=== PATIENT | female | born 1960 | race Caucasian/White ===

== ENCOUNTER → 2017-05-18 | Outpatient (CLI) | payer OTHER ==
[2017-05-18 11:49] LABS: Prothrombin Time 10.3 sec (9.0-12.0)
== END | disposition home or self-care (01) ==
LOC: LABWHC1 11:10
PROVIDERS: ATTEND Dentist Oral and Maxillofacial Surgery
DX: D68.9 Coagulation defect, unspecified (principal)
CPT/HCPCS: 36415; 85610

== ENCOUNTER → 2020-12-13 | Outpatient (CLI) | payer OTHER ==
[2020-12-13 09:50] LABS: Prothrombin Time 10.4 sec (9.0-12.0)
== END | disposition home or self-care (01) ==
LOC: LABWHC1 08:53
PROVIDERS: ATTEND Dentist Oral and Maxillofacial Surgery
DX: D68.9 Coagulation defect, unspecified (principal)
CPT/HCPCS: 36415; 85610

== ENCOUNTER → 2021-07-15 | Outpatient (CLI) | payer OTHER ==
[2021-07-15 10:13] LABS: INR 1.1 (<1.2); Prothrombin Time 11.4 sec (9.0-12.0)
== END | disposition home or self-care (01) ==
LOC: LABWHC1 09:32
PROVIDERS: ATTEND Dentist Oral and Maxillofacial Surgery
DX: D48.9 Neoplasm of uncertain behavior, unspecified (principal)
CPT/HCPCS: 36415; 85610

== ENCOUNTER 2021-11-25 12:34 | Emergency (ER) | payer OTHER ==
[2021-11-25] MEDS ORDERED: ACETAMINOPHEN TAB 325 MG TAB PO STA (12:37)
[2021-11-25 12:43] VITALS: RESP 18; TEMP 98.8
[2021-11-25] MEDS ORDERED: SODIUM CHLORIDE 0.9% 500 ML 500 ML IV ONE (12:45)
[2021-11-25] MEDS ORDERED: MORPHINE SULFATE 4 MG/ML SYRINGE IV STA (12:45)
[2021-11-25] MEDS ORDERED: DIPH,PERTUS(ACELL)TETVAC-LF 0.5 ML VIAL IM ONE (12:47)
[2021-11-25 13:14] LABS: Basophils % (A) 0 %; Eosinophils # (A) 0.1 k/uL (0-0.7); Eosinophils % (A) 1 %; HCT 38.4 % (34.0-46.0); HGB 13.1 gm/dL (11.4-16.0); Lymphocytes % (A) 15 %; MCH 31.5 pg (25.0-35.0); MCHC 34.1 g/dL (31.0-37.0); MCV 92.6 fL (80.0-100.0); Mean Platelet Volume 7.2; Monocytes # (A) 0.4 k/uL (0-1.0); Monocytes % (A) 6 %; Neutrophils % (A) 75 %; Platelet Count 262 k/uL (150-450); RBC 4.15 m/uL (3.80-5.40); RDW 13.4 % (11.5-15.5); WBC 6.7 k/uL (3.8-10.6)
[2021-11-25 13:24] LABS: INR 3.6 (<1.2); Partial Thromboplastin Time 26.6 sec (22.0-30.0); Prothrombin Time 36.1 sec (9.0-12.0)
[2021-11-25 13:27] LABS: ALT 19 U/L (4-34); AST 25 U/L (14-36); African American GFR (CKD) >90 (>60 ml/min/1.73 sqM); Albumin 3.8 g/dL (3.5-5.0); Alkaline Phosphatase 65 U/L (38-126); Anion Gap 6 mmol/L; Blood Urea Nitrogen 32 mg/dL (7-17); Calcium 8.3 mg/dL (8.4-10.2); Carbon Dioxide 23 mmol/L (22-30); Chloride 105 mmol/L (98-107); Glucose 135 mg/dL (74-99); Non-African American GFR(CKD) 89 (>60 ml/min/1.73 sqM); Potassium 4.2 mmol/L (3.5-5.1); Sodium 134 mmol/L (137-145); Total Bilirubin 0.8 mg/dL (0.2-1.3); Total Protein 6.3 g/dL (6.3-8.2)
--- NOTE | 2021-11-25 13:52 | CT ---
EXAMINATION TYPE: CT facial bones wo con DATE OF EXAM: 11/25/2021 COMPARISON: None HISTORY: Fall, pain on coumadin CT DLP: 1293.9 mGycm Automated exposure control for dose reduction was used. TECHNIQUE: CT scan of the sinuses is performed without contrast, axial images are obtained, coronal r eformatted images are also reviewed. FINDINGS: The paranasal sinuses including the frontal, ethmoid, sphenoid, and maxillary sinuses bila terally are well-aerated without abnormal opacification. The ostiomeatal complex is patent bilateral ly on the coronal images. Nasal septal deviation noted. Visualized portion of mastoid air cells show no abnormal opacification. The globes are intact bilate rally. IMPRESSION: The sinuses are clear and the ostiomeatal complex is patent bilaterally.
--- NOTE | 2021-11-25 13:59 | CT ---
EXAMINATION TYPE: CT pelvis wo con DATE OF EXAM: 11/25/2021 COMPARISON: None HISTORY: Fall, hip pain CT DLP: 974.3 mGycm Automated exposure control for dose reduction was used. FINDINGS: There is a posterior dislocation of the left femoral head. There is no adjacent bony density along the superior and posterior margin of the femoral head which l ikely is related to a chip fracture. Donor site may be related to the posterior margin of the acetabu lum. IMPRESSION: 1. Posterior left hip dislocation. Adjacent soft tissue edema. Small amount of fluid in the joint spa ce not excluded. 2. There is a 2 tiny bony density seen adjacent to the femoral head likely related to chip fractures. Donor site most likely related to acetum rather than femur correlate clinically.
--- NOTE | 2021-11-25 14:07 | CT ---
EXAMINATION TYPE: CT brain carlosine wo con DATE OF EXAM: 11/25/2021 COMPARISON: MRI dated 09/22/2011 HISTORY: Fall, pain on coumadin CT DLP: 1293.9 mGycm Automated exposure control for dose reduction was used. TECHNIQUE: CT scan of the head and cervical spine are performed without contrast. FINDINGS: Brain: Subtle bilateral superior frontal white matter hypodensities, possibly ischemic. No acute intracrania l hemorrhage or gross acute cortical infarct. No midline shift or herniation. Unremarkable basal cist erns, sella and CP angles. No gross space-occupying lesion, vasogenic edema or mass effect. No gross orbital abnormality. Clear visualized paranasal sinuses and mastoid air cells. No definite acute calvarial bone fracture identif ied. Cervical spine: Good vertebral alignment without significant anterolisthesis or retrolisthesis. No definite vertebral body collapse or acute displaced fracture. Unremarkable atlantoaxial and atlantooccipital articulati ons. No facet dislocation or significant subluxation. No significant central spinal canal stenosis or neuroforaminal stenosis. Tiny right thyroid lobe hypo density, please correlate with elective thyroid ultrasound results. Slightly prominent right lingual tonsil, nonspecific. A small underlying lesion cannot be excluded. Further ENT consultation can be co nsidered. Medialization of the internal carotid arteries seen posterior to the hypopharynx with minim al arterial atherosclerotic calcifications. No paraspinal lesion. IMPRESSION: 1. No acute traumatic bony injury of the cervical spine. 2. No acute intracranial posttraumatic sequela or acute calvarial bone fracture. 3. Incidental findings and recommendations as described above.
--- NOTE | 2021-11-25 14:13 | XR ---
EXAMINATION TYPE: XR femur LT, XR knee limited LT DATE OF EXAM: 11/25/2021 CLINICAL HISTORY: Pain after fall injury. TECHNIQUE: Two views of the left femur and knee are obtained. COMPARISON: CT pelvis earlier today FINDINGS: There is redemonstration of posterior dislocation of the left proximal femur with bony acut e fracture fragmentation of the posterior wall of the left acetabulum. No additional acute fracture i n the left femur. Metallic prosthesis at level of the left knee joint is redemonstrated. Osseous structures are deminer alized. No additional acute fracture at this level is seen. IMPRESSION: There is known posterior left hip dislocation with acute comminuted fractures through th e posterior wall of the left acetabulum. No additional acute fracture in the left femur or knee.
--- NOTE | 2021-11-25 14:14 | XR ---
EXAMINATION TYPE: XR chest 1V DATE OF EXAM: 11/25/2021 COMPARISON: NONE HISTORY: Chest pain after recent fall injury. TECHNIQUE: Single frontal view of the chest is obtained. FINDINGS: There is chronic parenchymal change without suspicious focal air space opacity, pleural ef fusion, or pneumothorax seen. The cardiac silhouette size is mildly enlarged. Overlying bra strap i s present. The osseous structures are demineralized. IMPRESSION: Chronic changes and mild cardiomegaly without acute pulmonary process.
[2021-11-25] MEDS ORDERED: PROPOFOL 10 MG/ML 20 ML VIAL IV ONE (14:15)
[2021-11-25] MEDS ORDERED: KETAMINE 10 MG/ML 20 ML VIAL IV ONE (14:15)
[2021-11-25] MEDS ORDERED: SODIUM CHLORIDE 0.9% 1,000 ML IV STA (14:16)
--- NOTE | 2021-11-25 14:44 | ED ---
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 Patient did not lose consciousness. States her INR is usually within normal limits. Denies any chest pain, shortness of breath. By my concern about his left hip pain. His normal sensation in the left foot. Fall occurred shortly before arrival. S tates she tripped over the sidewalk. She does take Coumadin. His no other acute complaints at this time. Presents over concern for injuries following mechanical fall. Patient fell from standing height. - Related Data Allergies Allergy/AdvReac Type Severity Reaction Status Date / Time No Known Allergies Allergy Verified 11/25/21 12:46 Review of Systems ROS Statement: Those systems with pertinent positive or pertinent negative responses have been documented in the HPI. Review of Systems: CONST: Denies fever EYES: Denies blurry vision ENT: Denies nasal congestion C/V: Denies Chest pain RESP: Denies shortness of breath GI: Denies abdominal pain : Denies dysuria SKIN: Endorses abrasions over the face MSK: Endorses left ear pain NEURO: Denies headache ROS Other: All systems not noted in ROS Statement are negative. Past Medical History Past Medical History: Hypertension Additional Past Medical History / Comment(s): clotting disorder History of Any Multi-Drug Resistant Organisms: None Reported Past Surgical History: Unable to Obtain Past Psychological History: No Psychological Hx Reported Smoking Status: Never smoker Past Alcohol Use History: Occasional Past Drug Use History: None Reported General Exam - General Exam Comments Initial Comments: General: Appears in moderate distress secondary to primarily left hip pain. HEAD: Has facial signs of trauma, including abrasions over the chin, nose. No facial tenderness to palpation otherwise. No step-offs or deformities. Negative raccoon eyes. Negative Yanes sign. EYES: PERRLA, EOMI, conjunctiva normal, no discharge. Pupils are 3 mm and equal bilaterally. ENT: Hearing grossly intact, normal oropharynx. RESPIRATORY: Clear breath sounds bilaterally. No wheezes, rales, or rhonchi. C/V: Regular rate and rhythm. S1 and S2 auscultated, no edema, peripheral pulses 2+ and intact throughout ABD: Abd is soft, nontender, nondistended EXT: Reduced range of motion of the left hip. Chest palpation over the lateral aspect of left hip. Left leg is shortened and internally rotated. No cervical, thoracic, lumbar spine tenderness to palpation. No femur tenderness to palpation. SKIN: Multiple abrasions over the face. NEURO: Alert and oriented 4. No focal deficits. NIH is 0. GCS is 15. No neurological deficits at this time Limitations: no limitations Course Vital Signs 11/25/21 11/25/21 11/25/21 12:36 14:10 14:30 Temperature 98.8 F Pulse Rate 73 88 78 Respiratory 18 18 Rate Blood Pressure 143/71 133/64 176/87 O2 Sat by Pulse 97 98 Oximetry 11/25/21 11/25/21 11/25/21 14:45 14:50 14:55 Temperature Pulse Rate 84 90 89 Respiratory 18 18 18 Rate Blood Pressure 188/98 212/137 203/92 O2 Sat by Pulse 100 98 97 Oximetry 11/25/21 11/25/21 11/25/21 15:00 15:15 15:30 Temperature Pulse Rate 90 80 88 Respiratory 18 18 18 Rate Blood Pressure 138/74 187/79 O2 Sat by Pulse 98 98 Oximetry 11/25/21 11/25/21 15:45 16:00 Temperature Pulse Rate 80 82 Respiratory 18 18 Rate Blood Pressure O2 Sat by Pulse 98 98 Oximetry Procedures - Orthopedic Fracture Reduction Fracture #1 Consent Obtained: verbal consent, written consent Side: left Fracture Reduction Location: femur Technique: direct manipulation, traction/counter-traction Splint Applied: No Patient Tolerated Procedure: well Additional Comments: Unsuccessful attempt to reduce Left hip fracture. - Procedural Sedation Procedural Sedation Start Time: 14:45 Procedural Sedation Stop Time: 15:00 Indications: fracture/dislocation reduction ASA Class: I Mallampati Airway Score: 2 Preparation: cardiac exercise physiologist applied, pulse oximeter, capnometry used Ketamine: IV Ketamine Dose: 40 IV Propofol Dose (mgs): 80 Complications: none Patient Tolerated Procedure: well Additional Comments: unsuccessful left hip reduction. Medical Decision Making - Medical Decision Making Based on patient's presentation and physical exam, and concern for acute traumatic injury following mechanical fall.We will obtain CT imaging of the patient's brain, neck, pelvis. We also obtain plain film x-rays of the left knee, femur. She was in agreement with this plan. Basic trauma labs were obtained including INR. She'll be given IV fluids as well as analgesia and a tetanus booster. Laboratory studies are remarkable for INR that is supratherapeutic at 3.6. Remainder the labs are unremarkable. CT brain showed no acute intracranial bleeding. CT C-spine show no acute injury. Chest x-ray revealed no acute injury. Left leg x-rays and CT imaging revealed a comminuted, chip posterior acetabular fracture with a posterior hip dislocation. Face CT revealed no acute fracture or injury. On re-evaluations, I did update the patient regarding the fracture and dislocation. I spoke with our orthopedic surgeon on-call, Dr. Adkins who recommended transfer to the trauma center. I was in agreement this plan. We'll attempt to reduce the fracture dislocation prior to transfer. I did speak with the orthopedic trauma surgeon on-call at [facility], Dr. Haro who accepted the patient. ER accepting physician is Dr. Cesar. Initial attempt was made to reduce the patient's hip fracture dislocation, and this was unsuccessful.I did contact orthopedic surgeon, Dr. Adkins who reviewed the images, and spoke with the patient. The decision was made to transfer the patient without reduction, as there is a high likelihood it will re-dislocate spontaneously. I did discuss this with Dr. Haro who was in agreement with the plan. There was a delay in transfer, as I was dealing with a another critical trauma patient who required transfer prior to this patient. There is also a delay, as the reduction attempt was unsuccessful. Patient was transferred in stable condition to [facility]. Accepting physician is Dr. Cesar. I discussed the plan with the patient and family, and they were in agreement with the plan. She'll be redosed morphine. Coumadin will be held at this time. - Lab Data Result diagrams: 11/25/21 12:58 11/25/21 12:58 Lab Results 11/25/21 11/25/21 11/25/21 Range/Units 12:58 12:58 12:58 WBC 6.7 (3.8-10.6) k/uL RBC 4.15 (3.80-5.40) m/uL Hgb 13.1 (11.4-16.0) gm/dL Hct 38.4 (34.0-46.0) % MCV 92.6 (80.0-100.0) fL MCH 31.5 (25.0-35.0) pg MCHC 34.1 (31.0-37.0) g/dL RDW 13.4 (11.5-15.5) % Plt Count 262 (150-450) k/uL MPV 7.2 Neutrophils % 75 % Lymphocytes % 15 % Monocytes % 6 % Eosinophils % 1 % Basophils % 0 % Neutrophils # 5.0 (1.3-7.7) k/uL Lymphocytes # 1.0 (1.0-4.8) k/uL Monocytes # 0.4 (0-1.0) k/uL Eosinophils # 0.1 (0-0.7) k/uL Basophils # 0.0 (0-0.2) k/uL PT 36.1 H (9.0-12.0) sec INR 3.6 H (<1.2) APTT 26.6 (22.0-30.0) sec Sodium 134 L (137-145) mmol/L Potassium 4.2 (3.5-5.1) mmol/L Chloride 105 (98-107) mmol/L Carbon Dioxide 23 (22-30) mmol/L Anion Gap 6 mmol/L BUN 32 H (7-17) mg/dL Creatinine 0.73 (0.52-1.04) mg/dL Est GFR (CKD-EPI)AfAm >90 (>60 ml/min/1.73 sqM) Est GFR (CKD-EPI)NonAf 89 (>60 ml/min/1.73 sqM) Glucose 135 H (74-99) mg/dL Calcium 8.3 L (8.4-10.2) mg/dL Total Bilirubin 0.8 (0.2-1.3) mg/dL AST 25 (14-36) U/L ALT 19 (4-34) U/L Alkaline Phosphatase 65 (38-126) U/L Total Protein 6.3 (6.3-8.2) g/dL Albumin 3.8 (3.5-5.0) g/dL Blood Type Blood Type Confirm Blood Type Recheck Bld Type Recheck Status Antibody Screen Spec Expiration Date 11/25/21 11/25/21 Range/Units 14:01 14:04 WBC (3.8-10.6) k/uL RBC (3.80-5.40) m/uL Hgb (11.4-16.0) gm/dL Hct (34.0-46.0) % MCV (80.0-100.0) fL MCH (25.0-35.0) pg MCHC (31.0-37.0) g/dL RDW (11.5-15.5) % Plt Count (150-450) k/uL MPV Neutrophils % % Lymphocytes % % Monocytes % % Eosinophils % % Basophils % % Neutrophils # (1.3-7.7) k/uL Lymphocytes # (1.0-4.8) k/uL Monocytes # (0-1.0) k/uL Eosinophils # (0-0.7) k/uL Basophils # (0-0.2) k/uL PT (9.0-12.0) sec INR (<1.2) APTT (22.0-30.0) sec Sodium (137-145) mmol/L Potassium (3.5-5.1) mmol/L Chloride (98-107) mmol/L Carbon Dioxide (22-30) mmol/L Anion Gap mmol/L BUN (7-17) mg/dL Creatinine (0.52-1.04) mg/dL Est GFR (CKD-EPI)AfAm (>60 ml/min/1.73 sqM) Est GFR (CKD-EPI)NonAf (>60 ml/min/1.73 sqM) Glucose (74-99) mg/dL Calcium (8.4-10.2) mg/dL Total Bilirubin (0.2-1.3) mg/dL AST (14-36) U/L ALT (4-34) U/L Alkaline Phosphatase (38-126) U/L Total Protein (6.3-8.2) g/dL Albumin (3.5-5.0) g/dL Blood Type A Positive Blood Type Confirm A Positive Blood Type Recheck No Previous Record Bld Type Recheck Status CABO Indicated Antibody Screen NEGATIVE Spec Expiration Date 11/28/2021 - 2300 Critical Care Time Critical Care Time: Yes Total Critical Care Time: 35 Critical Care Time: Upon my evaluation, this patient had a high probability of imminent or life- threatening deterioration due to posterior hip dislocation, left acetabular fracture, fall, which required my direct attention, intervention, and personal management. I have personally provided 35 minutes of critical care time exclusive of time spent on separately billable procedures. Time includes review of laboratory data, radiology results, discussion with consultants, and monitoring for potential decompensation. Interventions were performed as documented in my note. Disposition Clinical Impression: Fall, Left acetabular fracture, Posterior dislocation of left hip Disposition: OTHER INSTITUTION NOT DEFINED Condition: Serious Is patient prescribed a controlled substance at d/c from ED?: No Referrals: Michaelle Delcid MD [Primary Care Provider] - 1-2 days - Out of Hospital Transfer - Req. Specs Out of Hospital Transfer - Requested Specifics: Other Emergency Center (Transferred for escalation of care due to acetabular/pelvis fracture.)
[2021-11-25] MEDS ORDERED: MORPHINE SULFATE 4 MG/ML SYRINGE IVP STA ×2 (16:24→17:18)
[2021-11-25 18:00] VITALS: BP 130/85; PULSE 84
--- NOTE | 2021-11-26 09:05 | PN ---
PROGRESS NOTE EMERGENCY ROOM NOTE: DATE OF ENCOUNTER: 11/25/2021 This is a 61-year-old female who sustained an injury earlier today from a ground level fall onto her left side. She was transported to the emergency room. X-rays and CT scan were obtained which show a posterior dislocation of her left hip with a fracture of the posterior wall. The case was discussed with the emergency room physician, who attempted a closed reduction of the hip but was unable to do so despite sedation. I then saw and evaluated the patient in the emergency room alongside her family and reviewed her current situation. I explained to her that she has a posterior dislocation of her hip, and her options include attempt to re-reduce the hip. I discussed this option at length, but there is a strong possibility that either the hip is incarcerated and would need an open reduction or possibly the hip is unstable and unable to be maintained reduced without traction. Due to these factors, I have recommended transfer to a trauma care facility where there are orthopedic trauma physicians able to surgically address her problem. I also discussed that the more time her hip is dislocated, the more chance she has of having avascular necrosis of her femoral head. But given the fact that we are unable to definitively treat her injury at our hospital, I have recommended urgent transfer. She and her family are agreeable to this and I have answered all of their questions. The transfer process is currently in place and she will be transferred to the trauma facility soon. Currently she is comfortable in the bed. Her lower extremity is neurovascularly intact and she is holding her hip in a comfortable position. The patient will be transferred to the trauma care facility for definitive care. KATHERINE / BRIT: [id number] /
== END 2021-11-25 18:00 | disposition other institution (70) ==
LOC: EC 12:34
DX: W01.0XXA Fall on same level from slipping, tripping and stumbling without subsequent striking against object, initial encounter (principal); I10 Essential (primary) hypertension
CPT/HCPCS: 36415; 86900; 86901; 80053; 85025; 85610; 85730; 86850; 73552; 73560; 71045; 72192; 72125; 70486; 70450; 90715; 99284; 96374; 96375; 96376; 96361; J2270; J2704

== ENCOUNTER → 2022-03-12 | Outpatient (CLI) | payer OTHER ==
[2022-03-12 12:04] LABS: INR 2.1 (<1.2); Prothrombin Time 21.1 sec (9.0-12.0)
== END | disposition home or self-care (01) ==
LOC: LABWHC1 11:03
PROVIDERS: ATTEND Dentist Oral and Maxillofacial Surgery
DX: D68.32 Hemorrhagic disorder due to extrinsic circulating anticoagulants (principal)
CPT/HCPCS: 36415; 85610

== ENCOUNTER → 2023-08-03 | Outpatient (CLI) | payer OTHER ==
--- NOTE | 2023-08-03 10:48 | CT ---
EXAMINATION TYPE: CT abdomen wo con DATE OF EXAM: 08/03/2023 COMPARISON: 11/25/2021 CT pelvis HISTORY: ventral hernia CT DLP: 1055.20 mGycm Examination of the solid and hollow viscera is limited given the lack of contrast. Unenhanced CT of t he abdomen was performed from the lung bases through the pelvic inlet. FINDINGS: LUNG BASES: No evidence for nodule. No evidence for infiltrate. LIVER/GB: The gallbladder is surgically absent. No space-occupying hepatic lesion. PANCREAS: No pancreatic mass identified. No inflammatory process seen. SPLEEN: No evidence for splenomegaly. No intrasplenic lesions seen. ADRENALS: No adrenal nodules identified. No evidence for thickening. KIDNEYS: No evidence for renal mass. No nephrolithiasis. No hydronephrosis. BOWEL: Appendix has a normal appearance. Postoperative changes about the stomach and small bowel with surgical anastomosis noted. No evidence of bowel obstruction. No inflammatory process. Lymph nodes: No evidence for adenopathy greater than 1 cm. Abdominal aorta: Atheromatous changes seen. No evidence for aneurysm. Other: Midline and slightly to the right fat containing ventral hernia which measures 13.0 x 10.0 x 5 .6 cm. IMPRESSION: FAT-CONTAINING VENTRAL HERNIA NOTED.
== END | disposition home or self-care (01) ==
LOC: RADCTMAIN 09:44
PROVIDERS: ATTEND Surgery
DX: K43.9 Ventral hernia without obstruction or gangrene (principal)
CPT/HCPCS: 74150

== ENCOUNTER 2024-06-14 12:24 | Emergency (ER) | payer OTHER ==
--- NOTE | 2024-06-14 13:33 | XR ---
EXAMINATION TYPE: XR pelvis AP view DATE OF EXAM: 06/14/2024 CLINICAL HISTORY: pain TECHNIQUE: AP and frogleg views of the left hip are obtained. COMPARISON: None. FINDINGS: There is no acute fracture/dislocation evident. Total left hip arthroplasty is noted to be in place. The overlying soft tissue appears unremarkable. IMPRESSION: 1. There is no acute fracture or dislocation.ICD 10 NO FRACTURE, INITIAL EVALUATION [facility], , 06/14/2024 1:31 PM
--- NOTE | 2024-06-14 13:34 | XR ---
EXAMINATION TYPE: XR knee complete RT DATE OF EXAM: 06/14/2024 CLINICAL HISTORY: pain TECHNIQUE: Three views of the right knee are obtained. COMPARISON: None. FINDINGS: There is no acute fracture/dislocation. Severe narrowing medial tibiofemoral joint space. Moderate narrowing lateral tibiofemoral joint space and patellofemoral joint space. Associated bony s pur formation. The overlying soft tissue appears unremarkable. IMPRESSION: There is no acute fracture or dislocation.ICD 10 NO FRACTURE, INITIAL EVALUATION [facility], , 06/14/2024 1:32 PM
--- NOTE | 2024-06-14 13:35 | XR ---
EXAMINATION TYPE: XR lumbosacral spine min 4V DATE OF EXAM: 06/14/2024 CLINICAL HISTORY: pain COMPARISON: NONE TECHNIQUE: Frontal, lateral, and oblique images of the lumbar spine are obtained. FINDINGS: There are 5 lumbar type vertebral bodies identified. The lumbar spine shows satisfactory alignment without evidence of acute fracture or dislocation. Vertebral body heights are within normal limits. Moderate degenerative narrowing L5-S1 as well as at L1-2 and L2-3. Grade 1 anterolisthesis L 4 and L5 measuring 4 mm. Severe facet joint arthropathy. The overlying soft tissue appears unremark able. IMPRESSION: No acute fracture or dislocation is seen in the lumbar spine.ICD 10 NO FRACTURE, INITIAL EVALUATION [facility], , 06/14/2024 1:33 PM
--- NOTE | 2024-06-14 13:41 | ED ---
General Adult HPI - General Chief complaint: Fall Stated complaint: Fall on thinners-Back/R leg pain Time Seen by Provider: 06/14/24 12:47 Source: patient, RN notes reviewed, old records reviewed Mode of arrival: ambulatory Limitations: no limitations - History of Present Illness Initial comments: 63-year-old female presents status post fall which occurred 10 days ago. Patient was on a cruise, fell landing on her right knee followed by her left knee. Patient developed pain in the right knee as well as pain in the right buttock and low back. Patient had previous acetabular fracture on the left. Patient has been ambulatory since the fall. She is on Coumadin with history of DVT. She states she withheld this medication for several days after the fall. She did not seek medical attention until today. - Related Data Allergies Allergy/AdvReac Type Severity Reaction Status Date / Time No Known Allergies Allergy Verified 06/14/24 12:35 Review of Systems ROS Statement: Those systems with pertinent positive or pertinent negative responses have been documented in the HPI. ROS Other: All systems not noted in ROS Statement are negative. Past Medical History Past Medical History: Hypertension Additional Past Medical History / Comment(s): clotting disorder History of Any Multi-Drug Resistant Organisms: None Reported Past Surgical History: Section, Cholecystectomy Additional Past Surgical History / Comment(s): pelvic repair, left total hip replacement. gatric bypass Past Psychological History: Bipolar, Depression Smoking Status: Never smoker Past Alcohol Use History: Occasional Past Drug Use History: None Reported General Exam Limitations: no limitations General appearance: alert, in no apparent distress Head exam: Present: atraumatic Eye exam: Present: normal appearance, PERRL ENT exam: Present: normal exam Neck exam: Present: normal inspection. Absent: tenderness, meningismus Respiratory exam: Present: normal lung sounds bilaterally. Absent: respiratory distress, wheezes Cardiovascular Exam: Present: regular rate, normal rhythm GI/Abdominal exam: Present: soft. Absent: distended, tenderness, guarding Extremities exam: Present: other (Hematoma anterior knee right side and ecchymosis to the left lower extremity.) Back exam: Present: other (Artemio in the sacral lumbar region on the left) Neurological exam: Present: alert, oriented X3 Course Vital Signs 06/14/24 06/14/24 12:38 14:03 Temperature 98 F 98.1 F Pulse Rate 72 75 Respiratory 18 18 Rate Blood Pressure 135/69 136/84 O2 Sat by Pulse 100 100 Oximetry Medical Decision Making - Medical Decision Making Was pt. sent in by a medical professional or institution (ERICA Young, INFORMATION TECHNOLOGY ASSISTANT, urgent care, hospital, or retirement...) When possible be specific @ -No Did you speak to anyone other than the patient for history (EMS, parent, family, police, friend...)? What history was obtained from this source @ -No Did you review nursing and triage notes (agree or disagree)? Why? @ -I reviewed and agree with nursing and triage notes Were old charts reviewed (outside hosp., previous admission, EMS record, old EKG, old radiological studies, urgent care reports/EKG's, retirement records)? Report findings @ -No old charts were reviewed Differential Musculoskeletal Muscular strain, contusion, ligament sprain, fracture, arthritis, septic arthritis, bursitis, cellulitis, muscle spasm, nerve compression, DVT, arterial occlusion, herpes zoster, electrolyte abnormality, tumor.... This is not meant to be in all inclusive list EKG interpreted by me (3pts min.). @ -As above X-rays interpreted by me (1pt min.). @X-rays of the lumbar spine, pelvis, right knee are negative for displaced fracture. CT interpreted by me (1pt min.). @ -[CT brain negative for intracranial hemorrhage or mass effect U/S interpreted by me (1pt. min.). @ -None done What testing was considered but not performed or refused? (CT, X-rays, U/S, labs)? Why? @ -None What meds were considered but not given or refused? Why? @ -None Did you discuss the management of the patient with other professionals (professionals i.e. ERICA Young, INFORMATION TECHNOLOGY ASSISTANT, lab, RT, psych nurse, social media developer, configuration management advisor, teacher, staff electronic warfare officer, case resource manager)? Give summary @ -No Was smoking cessation discussed for >3mins.? @ -No Was critical care preformed (if so, how long)? @ -No Were there social determinants of health that impacted care today? How? (Homelessness, low income, unemployed, alcoholism, drug addiction, transportation, low edu. Level, literacy, decrease access to med. care, penitentiary, rehab)? @ -No Was there de-escalation of care discussed even if they declined (Discuss DNR or withdrawal of care, Hospice)? DNR status @ -No What co-morbidities impacted this encounter? (DM, HTN, Smoking, COPD, CAD, Ca ncer, CVA, ARF, Chemo, Hep., AIDS, mental health diagnosis, sleep apnea, morbid obesity)? @ -[History of DVT on Coumadin Was patient admitted / discharged? Hospital course, mention meds given and rou te, prescriptions, significant lab abnormalities, going to OR and other pertinent info. @ -63-year-old presenting status post fall which occurred 10 days ago. Patient is on Coumadin. X-rays of the lumbar spine, pelvis, right knee are negative for displaced fracture, no acute findings. Head CT is negative for intracranial hemorrhage or mass effect. Patient's INR is supratherapeutic greater than 10. No active bleeding however there is a hematoma to the right leg. I did instruct the patient to ice and elevate her knee and discontinue Coumadin awaiting recheck INR in 48 hours. Patient is instructed to present to the emergency department if she cannot have her INR checked by her primary care on Wednesday. Undiagnosed new problem with uncertain prognosis? @ -No Drug Therapy requiring intensive monitoring for toxicity (Heparin, Nitro, Insulin, Cardizem)? @ -No Were any procedures done? @ -No Diagnosis/symptom? @Fall, knee contusion and hematoma, supratherapeutic INR Acute, or Chronic, or Acute on Chronic? @Acute Uncomplicated (without systemic symptoms) or Complicated (systemic symptoms)? @ -Default Side effects of treatment? @ -No Exacerbation, Progression, or Severe Exacerbation? @ -No Poses a threat to life or bodily function? How? (Chest pain, USA, DC, pneumonia, PE, COPD, DKA, ARF, appy, cholecystitis, CVA, Diverticulitis, Homicidal, Suicidal, threat to staff... and all critical care pts) @ -[Low risk at this time - Lab Data Result diagrams: 06/14/24 14:06 Lab Results 06/14/24 06/14/24 Range/Units 14:06 14:06 WBC 3.6 L (3.8-10.6) k/uL RBC 3.38 L (3.80-5.40) m/uL Hgb 10.6 L (11.4-16.0) gm/dL Hct 32.2 L (34.0-46.0) % MCV 95.4 (80.0-100.0) fL MCH 31.2 (25.0-35.0) pg MCHC 32.7 (31.0-37.0) g/dL RDW 14.1 (11.5-15.5) % Plt Count 344 (150-450) k/uL MPV 7.2 Neutrophils % 68 % Lymphocytes % 21 % Monocytes % 6 % Eosinophils % 4 % Basophils % 1 % Neutrophils # 2.4 (1.3-7.7) k/uL Lymphocytes # 0.7 L (1.0-4.8) k/uL Monocytes # 0.2 (0-1.0) k/uL Eosinophils # 0.1 (0-0.7) k/uL Basophils # 0.0 (0-0.2) k/uL Hypochromasia Slight PT 117.2 H (10.0-12.5) sec INR >10.0 H* (<1.2) Disposition Clinical Impression: Fall, Contusion of knee, right, Supratherapeutic INR Disposition: HOME SELF-CARE Condition: Fair Instructions (If sedation given, give patient instructions): Knee Pain (ED), Fall Prevention (ED) Additional Instructions: Have your INR checked on Wednesday. Please do not take your Coumadin until your INR level is checked. Please apply ice to the right knee and elevate. Is patient prescribed a controlled substance at d/c from ED?: No Referrals: Michaelle Delcid MD [Primary Care Provider] - 1-2 days Time of Disposition: 16:19
[2024-06-14 14:23] LABS: Basophils % (A) 1 %; Eosinophils # (A) 0.1 k/uL (0-0.7); Eosinophils % (A) 4 %; HCT 32.2 % (34.0-46.0); HGB 10.6 gm/dL (11.4-16.0); Hypochromasia Slight; Lymphocytes # (A) 0.7 k/uL (1.0-4.8); Lymphocytes % (A) 21 %; MCH 31.2 pg (25.0-35.0); MCHC 32.7 g/dL (31.0-37.0); MCV 95.4 fL (80.0-100.0); Mean Platelet Volume 7.2; Monocytes # (A) 0.2 k/uL (0-1.0); Monocytes % (A) 6 %; Neutrophils # (A) 2.4 k/uL (1.3-7.7); Neutrophils % (A) 68 %; Platelet Count 344 k/uL (150-450); RBC 3.38 m/uL (3.80-5.40); RDW 14.1 % (11.5-15.5); WBC 3.6 k/uL (3.8-10.6)
[2024-06-14 14:40] LABS: Prothrombin Time 117.2 sec (10.0-12.5)
[2024-06-14 15:23] LABS: INR >10.0 (<1.2)
--- NOTE | 2024-06-14 16:07 | CT ---
EXAMINATION TYPE: CT brain wo con CT DLP: 1168.8 mGycm, Automated exposure control for dose reduction was used. DATE OF EXAM: 06/14/2024 3:57 PM COMPARISON: CT brain C-spine 11/25/2021 CLINICAL INDICATION:Female, 63 years old with history of Fall, Fall on June 04, hit head. TECHNIQUE: Brain: Multiple axial CT images of the brain were obtained without IV contrast. . Coronal and sagitta l reformats reviewed. FINDINGS: Dental amalgam creates streak artifact which limits evaluation. Brain: Extra-axial spaces: No abnormal extra-axial fluid collections. Ventricular system: Within normal limits Cerebral parenchyma: No acute intraparenchymal hemorrhage or mass effect. The flor-white junction is well differentiated. Scattered hypoattenuating areas are seen within the periventricular white matte r. Cerebellum: Unremarkable. Mass effect: No evidence of midline shift. Intracranial vasculature: Atherosclerotic calcifications of the intracranial vessels. Soft tissues: Normal. Calvarium/osseous structures: No depressed skull fracture. Paranasal sinuses and mastoid air cells: Clear Visualized orbits: Bilateral aphakia IMPRESSION: 1. No acute intracranial process. 2. Nonspecific white matter changes, likely secondary to chronic small vessel ischemic disease. [facility], , 06/14/2024 4:05 PM
[2024-06-14 16:19] VITALS: BP 103/68; PULSE 73; RESP 20; TEMP 98.2
== END 2024-06-14 16:33 | disposition home or self-care (01) ==
LOC: EC 12:24
CPT/HCPCS: 36415; 70450; 72110; 72170; 85025; 85610; 99284

== ENCOUNTER 2024-09-29 07:19 | Day surgery (SDC) | payer OTHER ==
[~2024-09-29 07:19] MED LIST: LACTATED RINGERS 1,000 ML IV SCH
--- NOTE | 2024-09-29 07:46 | P.GSHP ---
History of Present Illness H&P Date: 09/29/24 Chief Complaint: Ventral hernia 62-year-old female seen in the office in July 2023. Patient complaining of a bulge midway between the umbilicus and sternum. This is on the right side of midline. Gradually growing over the last 10 years. History of previous laparoscopic Codi-en-Y bypass in the past. Believes the hernia is present at a laparoscopy site. Patient's weight at its heaviest was 375 down to 262. More soreness lately. Enlarging. Patient had a CAT scan performed following her initial office visit showing a fat-containing incarcerated incisional hernia. Past Medical History Past Medical History: CVA/TIA, Deep Vein Thrombosis (DVT), Osteoarthritis (OA) Additional Past Medical History / Comment(s): clotting disorder unknown dx years ago after 2 dvt and TIAs before 50, allergies enviromental. Zepbound for wt loss. hx fx pelvis resulting in numbness to toes, uneven leg length. hx of HTN pt no longer takes BP meds due to wt loss and PCP is aware. ( dizziness) History of Any Multi-Drug Resistant Organisms: VRE Date of last positivie culture/infection: 2021 MDRO Source:: urine Past Surgical History: Section, Cholecystectomy, Joint Replacement Additional Past Surgical History / Comment(s): pelvic repair, left total hip replacement. gatric bypass, left knee replaced Past Anesthesia/Blood Transfusion Reactions: No Reported Reaction Smoking Status: Never smoker - Past Family History Mother Family Medical History: Cancer, Deep Vein Thrombosis (DVT) Additional Family Medical History / Comment(s): breast Sister(s) Family Medical History: Cancer, Deep Vein Thrombosis (DVT) Additional Family Medical History / Comment(s): breast Father Family Medical History: Cancer Additional Family Medical History / Comment(s): kidney Medications and Allergies Home Medications Medication Instructions Recorded Confirmed Type ARIPiprazole [Aripiprazole] 5 mg PO DAILY 09/27/24 09/27/24 History Codeine 30 mg PO BID 09/27/24 09/29/24 History Cyanocobalamin [Vitamin B-12 1,000 mcg IM QMONTHLY 09/27/24 09/29/24 History Injection] DULoxetine HCL [Cymbalta] 60 mg PO DAILY 09/27/24 09/27/24 History Folic Acid 1 mg PO DAILY 09/27/24 09/27/24 History Tirzepatide [Zepbound] 15 mg SQ WEEKLY 09/27/24 09/27/24 History Warfarin [Coumadin] 5 mg PO HS 09/27/24 09/29/24 History busPIRone HCl [Buspar] 20 mg PO HS 09/27/24 09/27/24 History lamoTRIgine [Lamotrigine] 100 mg PO DAILY 09/27/24 09/27/24 History lamoTRIgine [Lamotrigine] 200 mg PO HS 09/27/24 09/27/24 History methocarbamoL 500 - 1,000 mg PO TID PRN 09/27/24 09/27/24 History Allergies Allergy/AdvReac Type Severity Reaction Status Date / Time No Known Allergies Allergy Verified 09/29/24 07:36 Surgical - Exam Vital Signs Temp Pulse Resp BP Pulse Ox 97.8 F 74 16 144/67 99 09/29/24 07:41 09/29/24 07:41 09/29/24 07:41 09/29/24 07:41 09/29/24 07:41 Physical exam: General: Well-developed, well-nourished HEENT: Normocephalic, sclerae nonicteric Abdomen: Nontender, nondistended, mildly obese, incarcerated incisional hernia right of midline Extremities: No edema Neuro: Alert and oriented Assessment and Plan (1) Incarcerated incisional hernia Narrative/Plan: 64-year-old female with enlarging incarcerated incisional hernia. Will proceed with open repair and cursory incisional hernia with mesh at this time. Risks of bleeding, infection, recurrence, chronic pain, bladder and bowel injury, numbness, scarring, and anesthesia related complications were discussed. The correlation between hernia recurrence, obesity and smoking were reviewed in detail. The patient understands and wishes to proceed. Current Visit: Yes Status: Acute Code(s): K43.0 - INCISIONAL HERNIA WITH OBSTRUCTION, WITHOUT GANGRENE SNOMED Code(s): 989415071
[2024-09-29 08:02] LABS: Basophils % (A) 1 %; Eosinophils # (A) 0.1 k/uL (0-0.7); Eosinophils % (A) 4 %; HCT 37.1 % (34.0-46.0); HGB 12.3 gm/dL (11.4-16.0); Lymphocytes # (A) 0.7 k/uL (1.0-4.8); Lymphocytes % (A) 22 %; MCHC 33.1 g/dL (31.0-37.0); MCV 90.5 fL (80.0-100.0); Mean Platelet Volume 7.3; Monocytes # (A) 0.3 k/uL (0-1.0); Monocytes % (A) 8 %; Neutrophils # (A) 2.1 k/uL (1.3-7.7); Neutrophils % (A) 64 %; Platelet Count 252 k/uL (150-450); RDW 14.2 % (11.5-15.5); WBC 3.3 k/uL (3.8-10.6)
[2024-09-29] MEDS: ACETAMINOPHEN TAB 500 MG TAB PO PRN (08:09)
[2024-09-29] MEDS: DEXAMETHASONE SOD PHOSPHATE 4 MG/ML 1 ML VIAL IV ONE (08:10)
[2024-09-29] MEDS: ONDANSETRON 4 MG/2 ML VIAL IVP ONE (08:10)
[2024-09-29 08:18] LABS: INR 0.9 (<1.2); Prothrombin Time 10.3 sec (10.0-12.5)
[2024-09-29] MEDS: MIDAZOLAM 2 MG/2 ML VIAL IVP ONE (08:20)
[2024-09-29] MEDS: fentaNYL (PF) 50 MCG/ML 2 ML AMP IVP ONE (08:22)
[2024-09-29 08:24] LABS: Partial Thromboplastin Time 21.2 sec (22.0-30.0)
[2024-09-29] MEDS: HEPARIN SODIUM,PORCINE 5,000 UNIT/ML 1 ML VIAL SQ PRN (08:38)
[2024-09-29] MEDS: IV FLUID CONTINUATION 1,000 ML IV ONE (08:40)
--- NOTE | 2024-09-29 08:43 | P.ANPRN ---
Procedure Note - Anesthesia - Nerve Block Performed Bilateral Erector Spinae Single Time Out Performed: Yes Date of Procedure: 09/29/24 Procedure Start Time: Procedure Stop Time: Location of Patient: PreOp Indication: Acute Post-Operative Pain, Requested by Surgeon Sedation Type: Sedate with meaningful contact maintained Preparation: Sterile Prep Position: Prone Needle Types: Pajunk Needle Gauge: 21 Ultrasound used to visualize needle placement: Yes Ultrasound used to observe medication spread: Yes Injectate: 0.5% Ropivacaine (see comment for volume) (20 mL +10 mL of normal saline +4 mg of dexamethasone per side) Blood Aspirated: No Pain Paresthesia on Injection Noted: No Resistance on Injection: Normal Image Stored and Saved: Yes Events: Uneventful and Well Tolerated
[2024-09-29 08:58] LABS: ALT 13 U/L (4-34); AST 23 U/L (14-36); African American GFR (CKD) >90 (>60 ml/min/1.73 sqM); Albumin 4.2 g/dL (3.5-5.0); Alkaline Phosphatase 71 U/L (38-126); Anion Gap 7 mmol/L; Blood Urea Nitrogen 19 mg/dL (7-17); Calcium 9.3 mg/dL (8.4-10.2); Carbon Dioxide 28 mmol/L (22-30); Chloride 103 mmol/L (98-107); Glucose 93 mg/dL (74-99); Non-African American GFR(CKD) >90 (>60 ml/min/1.73 sqM); Potassium 3.9 mmol/L (3.5-5.1); Sodium 138 mmol/L (137-145); Total Protein 6.5 g/dL (6.3-8.2)
[2024-09-29] MEDS ORDERED: PROPOFOL 10 MG/ML 20 ML VIAL IV ONE (09:04)
[2024-09-29] MEDS ORDERED: DEXAMETHASONE SOD PHOSPHATE 4 MG/ML 1 ML VIAL ONE (09:04)
[2024-09-29] MEDS ORDERED: LIDOCAINE 1% INJ 10MG/ML (20 ML MDV) ONE (09:04)
[2024-09-29] MEDS ORDERED: HYDROmorphone (PF) 1 MG/ML ONE (09:04)
[2024-09-29] MEDS ORDERED: fentaNYL (PF) 50 MCG/ML 2 ML AMP ONE (09:04)
[2024-09-29] MEDS ORDERED: ePHEDrine 50 MG/ML 1 ML VIAL ONE (09:04)
[2024-09-29] MEDS ORDERED: SODIUM CHLORIDE 0.9% (PF) 10 ML VIAL ONE (09:04)
[2024-09-29] MEDS ORDERED: ROPIVACAINE 5 MG/ML 30 ML VIAL ONE (09:04)
[2024-09-29] MEDS ORDERED: SUCCINYLCHOLINE CHLORIDE 200 MG/10 ML VIAL IV ONE (09:04)
[2024-09-29] MEDS ORDERED: ROCURONIUM 10 MG/ML (5 ML VIAL) IV ONE (09:04)
[2024-09-29] MEDS ORDERED: LIDOCAINE 4% LTA KIT (4 ML) TOPICAL ONE (09:04)
[2024-09-29] MEDS ORDERED: PHENYLEPHRINE-0.9% NACL SYG 1,000 MCG/10 ML SYRINGE ONE (09:04)
[2024-09-29] MEDS ORDERED: GLYCOPYRROLATE 0.2 MG/ML 2 ML VIAL ONE (09:04)
[2024-09-29] MEDS ORDERED: NEOSTIGMINE 1 MG/ML 10 ML VIAL ONE (09:04)
[2024-09-29] MEDS: BUPIVACAINE (PF) 0.25% 30 ML VIAL SQ ONE ×2 (09:31→10:39)
[2024-09-29] MEDS: LACTATED RINGERS 1,000 ML IV ONE (10:06)
[2024-09-29 11:10] VITALS: TEMP 98.3
[2024-09-29] MEDS: KETOROLAC 15 MG/ML 1 ML VIAL IVP STA (11:12)
--- NOTE | 2024-09-29 11:14 | P.OP ---
Date of Procedure: 09/29/24 Procedure(s) Performed: PREOPERATIVE DIAGNOSIS: Incarcerated incisional hernia POSTOPERATIVE DIAGNOSIS: Same PROCEDURE: Open repair incarcerated incisional hernia with mesh SURGEON: Dr. Granado ANESTHESIA: General EBL: 25 cc OPERATIVE PROCEDURE DETAILS: Patient placed on the operating table in the supine position. Abdomen was prepped and draped in usual sterile fashion. The previous laparoscopy incision was reincised horizontally. The subcutaneous layers were dissected using electrocautery. A few small vessels were ligated using 3-0 silk ties. The patient had a very large hernia sac that was carefully dissected using both cautery and blunt dissection down to the fascia. The patient's fascial defect measured 6 x 2 cm. The fat overlying the fascia was circumferentially dissected. A single additional smaller defect was seen inferior to the main hernia site. This was incorporated into our closure later. The preperitoneal space was circumferentially dissected using a combination of blunt dissection and cautery. Laterally we did enter the peritoneal cavity. A 8 x 12 cm oval Ventrio mesh was utilized. This was placed beneath the fascia and sutured to the fascia using 8 different transfascial 0 Ethibond sutures. Between the suture sites the secure strap was utilized. The fascial defect was then closed horizontally in a vest over pants fashion with interrupted horizontal mattress 0 Ethibond sutures. A drain was placed anterior to the fascial closure exiting through the right lower quadrant. This was sutured to the skin using a 3-0 silk stitch. The subcutaneous tissues were closed using 3- 0 Vicryl sutures. The skin was closed using a running 4-0 Monocryl subcuticular suture. Skin glue and sterile dressings were applied. HERNIA CHARACTERISTICS: Length: 2 cm Width: 6 cm Type: Incisional TYPE OF MESH USED: 12 x 8 cm Ventrio LOCATION OF MESH: Sublay FIXATION: 0 Ethibond and secure strap PREOPERATIVE DISCUSSION ON SMOKING CESSASTION: Yes PREOPERATIVE DISCUSSION ON MORBID OBESITY: Yes PREOPERATIVE DISCUSSION ON APPROPRIATE USE OF NARCOTIC USE: Yes PREOPERATIVE EDUCATION: Multi Modal, Smoking Cessation and Weight Loss with BMI over 35. DISPOSITION: Stable to recovery room
[2024-09-29] MEDS ORDERED: ACETAMINOPHEN TAB 325 MG TAB PO SCH (11:15)
[2024-09-29] MEDS: HYDROmorphone 0.5 MG/0.5 ML SYRINGE IVP PRN (11:21)
[2024-09-29] MEDS ORDERED: IBUPROFEN 600 MG TAB PO SCH (14:15)
[2024-09-29] MEDS: HYDROcodone/APAP 5-325MG 1 EACH TAB PO STA (14:21)
[2024-09-29 14:25] VITALS: BP 117/61; PULSE 97; RESP 18
== END 2024-09-29 14:51 | disposition home or self-care (01) ==
LOC: OR 07:19
PROVIDERS: ATTEND Surgery
DX: K43.0 Incisional hernia with obstruction, without gangrene (principal); I10 Essential (primary) hypertension; F31.30 Bipolar disorder, current episode depressed, mild or moderate severity, unspecified; M19.90 Unspecified osteoarthritis, unspecified site; Z90.49 Acquired absence of other specified parts of digestive tract; Z86.73 Personal history of transient ischemic attack (TIA), and cerebral infarction without residual deficits; Z86.718 Personal history of other venous thrombosis and embolism; Z79.899 Other long term (current) drug therapy
CPT/HCPCS: 64999; 80053; 85025; 85610; 85730; 49594; C1781; J2250; J0330; J1644; J1100; J2710; J0690; J2405; J2003; J3010; J1171 ×2; J2795; J1885; J2704; J2371; J0665; J1596